=== PATIENT | female | born 1990 | race Caucasian/White ===

== ENCOUNTER 2016-11-18 09:45 | Emergency (ER) | payer MEDICAID, MEDICARE ==
[~2016-11-18] VITALS: Ht 162.6 cm; Wt 82.0 kg
[2016-11-18 10:53] VITALS: BP 119/88
[2016-11-18] MEDS ORDERED: ACETAMINOPHEN 325MG TABLET PO ONE (11:15)
== END 2016-11-18 12:51 | disposition home or self-care (01) ==
LOC: ER 12:40
DX: S99.921A Unspecified injury of right foot, initial encounter (principal); Z87.440 Personal history of urinary (tract) infections; X58.XXXA Exposure to other specified factors, initial encounter; Y93.89 Activity, other specified; Y92.009 Unspecified place in unspecified non-institutional (private) residence as the place of occurrence of the external cause; Y99.8 Other external cause status
CPT/HCPCS: 73630; 81025; 99284

== ENCOUNTER 2020-03-27 18:13 | Emergency (ER) | payer SELFPAY ==
[~2020-03-27] VITALS: Ht 162.6 cm; Wt 77.0 kg
[2020-03-27] MEDS ORDERED: SODIUM CHLORIDE 0.9% 1,000 ML IV ONE (18:45)
[2020-03-27] MEDS ORDERED: ONDANSETRON HCL 4MG/2ML INJ IV ONE (18:45)
[2020-03-27] MEDS ORDERED: MORPHINE SULFATE 4 MG/ML CPJ (NOT FOR IM USE) IV ONE (18:45)
[2020-03-27] MEDS ORDERED: SILVER SULFADIAZINE 1% CREAM 25GM TOP ONE (18:45)
[2020-03-27 20:05] VITALS: BP 131/87
== END 2020-03-27 21:38 | disposition home or self-care (01) ==
LOC: ER 18:13
DX: T22.232A Burn of second degree of left upper arm, initial encounter (principal); T21.21XA Burn of second degree of chest wall, initial encounter; T22.212A Burn of second degree of left forearm, initial encounter; T31.11 Burns involving 10-19% of body surface with 10-19% third degree burns; X10.2XXA Contact with fats and cooking oils, initial encounter; Y93.G3 Activity, cooking and baking; Y92.010 Kitchen of single-family (private) house as the place of occurrence of the external cause
CPT/HCPCS: 96361; 96374; 96375; 99284; J2270; J2405; J7030

== ENCOUNTER 2022-02-08 18:52 | Emergency (ER) | payer MEDICAID ==
[~2022-02-08] VITALS: Ht 162.6 cm; Wt 74.0 kg
[2022-02-08 19:30] VITALS: BP 101/77
== END 2022-02-09 07:07 | disposition left against medical advice (07) ==
LOC: ER 18:52
DX: Z53.21 Procedure and treatment not carried out due to patient leaving prior to being seen by health care provider (principal)